=== PATIENT | male | born 1950 | race Caucasian/White ===

== ENCOUNTER 2016-12-30 11:33 | Inpatient (IN) | payer MEDICARE ==
[~2016-12-30] VITALS: Ht 180.3 cm; Wt 172.0 kg
--- NOTE | ~2016-12-30 | ECH ---
Transthoracic Echocardiography Report (TTE) Demographics Patient Name PAUL ALMAZAN JR Date of Study 12/31/2016 Patient Number [id number] Visit Number [id number] Date of 1950 Room Number 413 Accession Number [id number] Gender Male Age 66 year(s) Referring Danish Terrazas Credit Risk Manager May Ashley [facility] Physician MD Nabila Mccain APRN Physician Interpreting [place] Pacheco MD Guyline Operator Physician Supervising Ordering Physician Danish Terrazas MD/KATELYN BURNS Nurse Stress Legal Manager Conclusions Summary Technically fair exam. The estimated left ventricular ejection fraction is 65%. Moderate left ventricular hypertrophy. Diastolic assessment reveals Grade I diastolic dysfunction. Right ventricular hypertrophy. Right ventricle mildly dilated with normal systolic function. The right atrium is mildly dilated. There is mild aortic stenosis by the Continuity Equation. The peak velocity is 2.7 m/s, the mean gradient is 16 mmHg, and the valve area based on the continuity equation is 2.5cm2, stroke volume index is 40ml/m2. No other significant valvular abnormalities. The ascending aorta appears mildly dilated. The maximum diameter measures 4.08 cm. Procedure Type of Study TTE procedure:Echo Complete SF. Procedure Date Date: 12/31/2016 Start: 08:13 AM Technical Quality: Fair due to body habitus. Indications:Congestive heart failure and Hypertension. Additional Indications:25 pound weight gain over 2 weeks Appropriate Use Criteria: 9 Height: 71 inches Weight: 396 pounds BSA: 2.82 m Rhythm: Within normal limits HR: 67 bpm BP: 142/77 mmHg M-Mode/2D Measurements LV Diastolic Dimension: 4.84 cm LV Systolic Dimension: 3.2 cm LV Septum Diastolic: 1.67 cm LV PW Diastolic: 1.44 cm AO Root Dimension: 2.7 cm Cardiac Output: 7.7 l/min LA Dimension: 4.39 cm Cardiac Index: 2.73 l/min*m RV Diastolic Dimension: 2.96 cm LA volume index: 28 ml/m LVOT: 2 cm LVOT VTI: 36.6 cm RV Base: 5.3 cm LV Stroke volume: 114.92 ml RV Mid: 3.7 cm LV Stroke volume index: 40.75 ml/m RV Length: 7.6 cm TAPSE: 3.6 cm TDI-S': 11 cm/s Doppler Measurements AV Peak Velocity: 2.7 m/s MV Peak E-Wave: 0.79 m/s AV Peak Gradient: 29.16 mmHg MV Peak A-Wave: 1.14 m/s AV Mean Gradient: 16.36 mmHg MV E/A Ratio: 0.69 LVOT Peak Velocity: 1.43 m/s MV P1/2t: 107.4 msec AV Area (Continuity):2.42 cm MV Deceleration Time: 343.9 msec TR Velocity:2.44 m/s MV Area (PHT): 2.05 cm TR Gradient:23.9 mmHg PV Peak Velocity: 1.38 m/s Estimated RAP:5 mmHg PV Peak Gradient: 7.63 mmHg Estimated RVSP: 29 mmHg Estimated PASP: 28.9 mmHg RA Area: 24.89 cm Findings Left Ventricle The left ventricle is normal in size . Moderate left ventricular hypertrophy. Diastolic assessment reveals Grade I diastolic dysfunction. Right Ventricle Right ventricle not well visualized in apical view. From subcostal view right ventricular wall 1.22cm and appears mildly dilated with normal systolic function. Left Atrium Normal left atrial size. Right Atrium The right atrium is mildly dilated. Mitral Valve Normal mitral valve structure and function. Aortic Valve The aortic valve is moderately sclerotic. There is mild aortic stenosis by the Continuity Equation. The peak velocity is 2.7 m/s, the mean gradient is 16 mmHg, and the valve area based on the continuity equation is 2.5cm2, stroke volume index is 40ml/m2. Peak velocity found at apiex. Tricuspid Valve Normal tricuspid valve structure and function. Mild tricuspid regurgitation by color Doppler. Estimated pulmonary pressures within normal range. Pulmonic Valve The pulmonic valve is not well visualized. Pericardial Effusion No evidence of pericardial effusion. Miscellaneous The ascending aorta appears mildly dilated. The maximum diameter measures 4.08 cm. Pleural Effusion No evidence of pleural effusion. Signature
--- NOTE | 2016-12-31 11:08 | ER ---
ADMIT: 12/30/2016 RM/LOC: 413 [facility] MR#: [id number] [address] [facility] [address] [place] [id number] KAYLEN [place] [address] Emergency Room Report SEX: M AGE: 66 : 1950 DATE: 12/30/2016 ADDENDUM: [facility] patient, morbidly obese, multiple medical comorbidities, coming in with complaint of 20 pounds of weight gain in the last several days as well as shortness of breath. He has multiple comorbidities that could contribute to this. The [facility] had done some blood work and had sent him over here. The [facility] in [place] is also full, and the [facility] here expect him to be admitted. At this time, chest x-ray, I do not really see anything. His troponin is negative. His BNP is negative. We did give him a total of 100 of Lasix IV. Also, given him Decadron 20 IV as well as a DuoNeb treatment. I spoke with Dr. Peng; since the [facility] is closed, he will admit him. CONDITION ON DISCHARGE: Fair. Rashid Locke MD/ rosal JOB #: [id number] CC: Rashid Peng MD, Attending Physician Rashid Peng MD, Family Physician
[2017-01-03] MEDS ORDERED: TYLENOL DPS325 MG PO (11:04)
[2017-01-03] MEDS ORDERED: PROAIR RESPICL90 MCG IH (11:05)
[2017-01-03] MEDS ORDERED: MOI-STIR120 ML PO (11:05)
[2017-01-03] MEDS ORDERED: DUONEB DPS3 ML IH (11:05)
[2017-01-03] MEDS ORDERED: POLYSPORIN OINT15 GM TP (11:06)
[2017-01-03] MEDS ORDERED: ATORVASTATIN CA40 MG PO (11:06)
[2017-01-03] MEDS ORDERED: DULCOLAX-DPS10 MG PR (11:06)
[2017-01-03] MEDS ORDERED: ASPIRIN EC81 MG PO (11:06)
[2017-01-03] MEDS ORDERED: BUPROPION XL150 MG PO (11:07)
[2017-01-03] MEDS ORDERED: COREG DPS6.25 MG PO (11:08)
[2017-01-03] MEDS ORDERED: THERAGEN60 GM TP (11:08)
[2017-01-03] MEDS ORDERED: [UNRECOGNIZED DRUG - OTHER] TP (11:09)
[2017-01-03] MEDS ORDERED: GUAIFENESIN DM120 ML PO (11:10)
[2017-01-03] MEDS ORDERED: GENTEAL TEARS 015 ML OU (11:10)
[2017-01-03] MEDS ORDERED: FUROSEMIDE80 MG PO (11:11)
[2017-01-03] MEDS ORDERED: FLOVENT 220MCG12 GM IH (11:11)
[2017-01-03] MEDS ORDERED: SENOKOT S1 TAB PO (11:11)
[2017-01-03] MEDS ORDERED: OMEGA-3 DPS1000 MG PO (11:11)
[2017-01-03] MEDS ORDERED: MUCUS RELIEF400 MG PO (11:12)
[2017-01-03] MEDS ORDERED: HYALGAN10 MG/1 ML (11:14)
[2017-01-03] MEDS ORDERED: NIZORAL DPS30 GM TP (11:14)
[2017-01-03] MEDS ORDERED: REGLAN DPS5 MG PO (11:15)
[2017-01-03] MEDS ORDERED: COZAAR DPS25 MG PO (11:15)
[2017-01-03] MEDS ORDERED: XYLOCAINE 2% JEL5 M1 TP (11:15)
[2017-01-03] MEDS ORDERED: MELATONIN3 MG PO (11:15)
[2017-01-03] MEDS ORDERED: [UNRECOGNIZED DRUG - OTHER] TP (11:16)
[2017-01-03] MEDS ORDERED: NASONEX NASAL S17 GM NS (11:17)
[2017-01-03] MEDS ORDERED: PRESERVISION A1 EACH PO (11:17)
[2017-01-03] MEDS ORDERED: BACTROBAN OINT.22 GM TP (11:18)
[2017-01-03] MEDS ORDERED: NITROSTAT0.4 MG SL (11:18)
[2017-01-03] MEDS ORDERED: PROTONIX40 MG PO (11:19)
[2017-01-03] MEDS ORDERED: STRIVERDI RESPIM4 GM IH (11:19)
[2017-01-03] MEDS ORDERED: MICRO-K DPS10 MEQ PO (11:19)
[2017-01-03] MEDS ORDERED: PAROXETINE HCL30 MG PO (11:19)
[2017-01-03] MEDS ORDERED: MYLICON DPS80 MG PO (11:20)
[2017-01-03] MEDS ORDERED: SINUS RINSE PR1 EACH TP (11:21)
[2017-01-03] MEDS ORDERED: FLOMAX DPS0.4 MG PO (11:22)
[2017-01-03] MEDS ORDERED: SF56 GM PO (11:22)
[2017-01-03] MEDS ORDERED: SPIRONOLACTONE25 MG PO (11:22)
[2017-01-03] MEDS ORDERED: SANCTURA20 MG PO (11:23)
[2017-01-03] MEDS ORDERED: [UNRECOGNIZED DRUG - OTHER] PO (11:23)
[2017-01-03] MEDS ORDERED: DESYREL DPS100 MG PO (11:23)
[2017-01-03] MEDS ORDERED: ZAROXOLYN2.5 MG PO (11:23)
--- NOTE | 2017-01-04 10:17 | DS ---
ADMIT: 12/30/2016 RM/LOC: 413 [facility] MR#: [id number] [address] [facility] [address] [place], [place] [address] [place] [address] Discharge Summary SEX: M AGE: 66 : 1950 ADMISSION DATE: 12/30/2016 DISCHARGE DATE: 01/02/2017 CONSULTATIONS: None. PROCEDURES: None. FINAL DIAGNOSES: 1. Acute diastolic heart failure exacerbation. 2. Morbid obesity. 3. Obstructive sleep apnea with likely obesity, hypoventilation syndrome as well. 4. COPD (chronic obstructive pulmonary disease) history. REASON FOR ADMISSION: The patient is a 66-year-old gentleman, normally receives his care up at the [facility]. Had increasing shortness of breath. Was admitted further stabilization from the [facility] given that he had failed outpatient management with oral diuretics. HOSPITAL COURSE: The patient was admitted. Given IV diuresis. Responded slowly and steadily to this. His creatinine at the time of discharge was 1.5. He had more than 5 L off on the day prior to discharge after some addition of metolazone to his IV diuresis. He had an echo performed while here and an EF of 65% with LVH, some diastolic dysfunction, mildly dilated right ventricle, mild aortic stenosis with a gradient of 16, valve area 2.5 cm. Mildly dilated aorta. The patient overall felt safe and stable for discharge to home. Plan is to follow up with his normal primary [facility] provider through [facility]. DISCHARGE INSTRUCTIONS: Please see discharge MAR which I reviewed. He will essentially be on his home medications and diuretics. Will add metolazone 2.5 mg every day in the morning. He should follow up with his [facility] provider within a week and BMP up there as well as clinical evaluation. Mariano Morris MD/ sonia JOB #: [id number] CC: Rashid Peng MD, Attending Physician Rashid Peng MD, Family Physician Adán Dahl NP
--- NOTE | 2017-01-07 16:42 | HP ---
ADMIT: 12/30/2016 RM/LOC: 413 [facility] MR#: [id number] 26[address] [facility] [address] [place], [place] [address] [place] [address] History and Physical SEX: M AGE: 66 : 1950 DATE OF SERVICE: 12/30/2016 CHIEF COMPLAINT: Shortness of breath. HISTORY OF PRESENT ILLNESS: Mr. Almazan is a pleasant 66-year-old male with a past medical history significant for coronary artery disease with stent, COPD, chronic heart failure, hypertension, and overactive bladder, who presents to the hospital with shortness of breath. Apparently, shortness of breath started about 3 weeks ago. The patient does participate in Telehealth for his heart failure through the [facility]. The patient presented to [facility] last week. At that time, they increased his Lasix dose from 60 mg b.i.d. to 80 mg b.i.d. as he had put on weight. He was informed at this visit, if he was unable to lose anymore weight that he may require hospitalization. The patient presented to the ER today with complaints of shortness of breath. Chest x-ray was unremarkable as were cardiac enzymes. The patient was admitted for diuresis and management of his acute heart failure exacerbation. The patient is currently resting comfortably on room air. Continues to have some shortness of breath, but not in respiratory distress. Says that he has gained about 20 pounds over the last 3 weeks. Says that he is adhering to low-sodium diet, does not eat any canned food, or use extra salt and added bites by 3 L water restriction. The patient denies any recent chest pain, cough. The patient does think he has a little bit more increased leg swelling, but feels like most of this fluid is going into his abdomen. The patient was given 100 mg IV Lasix in the emergency room and has since diuresed almost 3 L. REVIEW OF SYSTEMS: Negative except for what was mentioned in the HPI. PAST MEDICAL HISTORY: Chronic heart failure, coronary artery disease, ischemic cardiomyopathy, hypertension, overactive bladder, and COPD. PAST SURGICAL HISTORY: Several orthopedic surgeries including back surgery, tonsillectomy, nasal reconstruction. FAMILY HISTORY: Noncontributory. CURRENT MEDICATIONS: See MAR. SOCIAL HISTORY: The patient has smoked for about 45 years. He has had 2 to 3 cigarettes per day, and currently is a nonsmoker. Seldom drinks alcohol. ALLERGIES: THE PATIENT IS ALLERGIC TO OPIOIDS, GABAPENTIN, AND IBUPROFEN. PHYSICAL EXAMINATION: VITAL SIGNS: Temperature is 98.7, pulse 73, respirations 20, blood pressure 142/77, the patient is saturating 93% on room air. GENERAL: In no acute distress. The patient is morbidly obese. HEAD, EARS, EYES, NOSE, AND THROAT: No icterus. Normocephalic, atraumatic. LUNGS: The patient is clear to auscultation bilaterally. No increased work of breathing. No wheezing. No crackles. ADMIT: 12/30/2016 RM/LOC: 413 [facility] MR#: [id number] [address] [place] [id number] [place] [address] History and Physical SEX: M AGE: 66 : 1950 CARDIAC: Regular rate and rhythm. No heaves. No murmurs. ABDOMEN: Very large indurated pannus. No tenderness in any of the quadrants. Normoactive bowel sounds. EXTREMITIES: Atraumatic. Trace edema just above the ankle. NEUROLOGIC: Cranial nerves II through XII are intact. Otherwise, grossly normal. LABORATORY DATA: Troponin negative. ProBNP is 42. IMAGING: Chest x-ray, low inspiration, cardiomegaly without vascular congestion, overlying soft tissue, partially obscure on the lung bases. No acute osseus abnormality. ASSESSMENT: Mr. Almazan is a 66-year-old man, presented to the emergency room with shortness of breath, appears to be volume overloaded. PLAN: 1. Volume overload. Even though chest x-ray and BNP do not demonstrate volume overload, the patient has recent 20-pound weight gain, and reports decreased urination. The patient has already diuresed significantly with 100 mg IV Lasix. We will dose Lasix 80 mg IV b.i.d. starting tomorrow. Suspect this is related to his heart failure. 2. Chronic heart failure with acute exacerbation. Resuming home medications, diuresis as per above. We will get EKG, cardiac markers are otherwise unremarkable as well as chest x-ray. Plan for TTE tomorrow. 3. Hypertension. Blood pressure is within goal right now. Resume home antihypertensives, suspect will improve with some diuresis. 4. Overactive bladder. Resume home medications. 5. COPD. Resume home inhalers and DuoNeb. 6. Obstructive sleep apnea, home BiPAP. 7. Coronary artery disease, on aspirin, Lipitor, and beta-hair. Continue these inpatient. 8. DVT prophylaxis with Lovenox. 9. Diet, cardiac with 2 L fluid restriction. Please call me with any questions or concerns. My telephone number is . Tyler Cortes MD Resident / Rashid Peng MD / rosal JOB #: [id number] CC: Rashid Peng MD, Attending Physician Rashid Peng MD, Family Physician
== END 2017-01-02 10:07 | disposition home or self-care (01) | DRG 292 ==
LOC: ER 11:33 → 4PCU 13:50
PROVIDERS: ADMIT Internal Medicine
DX: I11.0 Hypertensive heart disease with heart failure (principal); E66.2 Morbid (severe) obesity with alveolar hypoventilation; J44.9 Chronic obstructive pulmonary disease, unspecified; Z68.43 Body mass index [BMI] 50.0-59.9, adult; I25.10 Atherosclerotic heart disease of native coronary artery without angina pectoris; B36.9 Superficial mycosis, unspecified; I50.31 Acute diastolic (congestive) heart failure; G47.33 Obstructive sleep apnea (adult) (pediatric); G47.00 Insomnia, unspecified; N40.0 Benign prostatic hyperplasia without lower urinary tract symptoms; I25.5 Ischemic cardiomyopathy; N32.81 Overactive bladder; Z95.5 Presence of coronary angioplasty implant and graft; Z79.82 Long term (current) use of aspirin; Z91.81 History of falling

== ENCOUNTER 2017-02-03 10:15 | Emergency (ER) | payer MEDICARE ==
[~2017-02-03 10:15] MED LIST: ASPIRIN EC81 MG PO; ATORVASTATIN CA40 MG PO; BACTROBAN OINT.22 GM TP; BUPROPION XL150 MG PO; COREG DPS6.25 MG PO; COZAAR DPS25 MG PO; DESYREL DPS100 MG PO; DULCOLAX-DPS10 MG PR; DUONEB DPS3 ML IH; FLOMAX DPS0.4 MG PO; FLOVENT 220MCG12 GM IH; FUROSEMIDE80 MG PO; GENTEAL TEARS 015 ML OU; GUAIFENESIN DM120 ML PO; HYALGAN10 MG/1 ML; MELATONIN3 MG PO; MICRO-K DPS10 MEQ PO; MOI-STIR120 ML PO; MUCUS RELIEF400 MG PO; MYLICON DPS80 MG PO; NASONEX NASAL S17 GM NS; NITROSTAT0.4 MG SL; NIZORAL DPS30 GM TP; OMEGA-3 DPS1000 MG PO; PAROXETINE HCL30 MG PO; POLYSPORIN OINT15 GM TP; PRESERVISION A1 EACH PO; PROAIR RESPICL90 MCG IH; PROTONIX40 MG PO; REGLAN DPS5 MG PO; SANCTURA20 MG PO; SENOKOT S1 TAB PO; SF56 GM PO; SINUS RINSE PR1 EACH TP; SPIRONOLACTONE25 MG PO; STRIVERDI RESPIM4 GM IH; THERAGEN60 GM TP; TYLENOL DPS325 MG PO; XYLOCAINE 2% JEL5 M1 TP; ZAROXOLYN2.5 MG PO; [UNRECOGNIZED DRUG - OTHER] PO; [UNRECOGNIZED DRUG - OTHER] TP; [UNRECOGNIZED DRUG - OTHER] TP
--- NOTE | 2017-02-08 23:43 | ER ---
ADMIT: 02/03/2017 RM/LOC: ER [facility] MR#: [id number] [address] [facility] [address] [place], [place] [address] [place] [address] Emergency Room Report SEX: M AGE: 66 : 1950 DATE: 02/03/2017 ADDENDUM: This patient comes to the ER by ambulance from the [facility]. Apparently, he has been having issues with CHF. They put him on furosemide, and he has been getting his potassium checked every other day because his potassium has been low. At one time, it was 2.7. [facility], and they realized that it was 3.1 and still was not up to normal despite all the potassium he has been taking and they are concerned that maybe he needs [facility] the [facility]. On physical exam, he is alert and answers questions and speaks appropriately. He states he does have weakness, but he has had this weakness for the last 2 months. He has also had syncope episode five times in the last 2 months, which he has been worked up for and was one of the reasons they told him he had CHF and started taking potassium and furosemide. None of these symptoms are new to the patient as of today. We did redraw the blood and his potassium was indeed 3.1. His BNP was 77 and his chest x-ray was normal. I did consult with Dr. Yao concerning treatment of this patient. There was no reason at this time for the patient to be transferred by [facility]. He has no new complaints, and his potassium is low. However, he is able to take potassium. I gave him 40 mEq here in the ER. He was prescribed potassium which he should continue to take at home, and [facility]. Please see my T-sheet. MARTITA Foley / Andre Yao MD / lolis JOB #: [id number] CC: Andre Yao MD, Attending Physician [facility] Physician, Family Physician
== END 2017-02-03 13:30 | disposition home or self-care (01) ==
LOC: ER 10:15
DX: E87.6 Hypokalemia (principal); I11.0 Hypertensive heart disease with heart failure; I50.9 Heart failure, unspecified; J44.9 Chronic obstructive pulmonary disease, unspecified; Z88.8 Allergy status to other drugs, medicaments and biological substances